=== PATIENT | female | born 1940 | race Caucasian/White ===

== ENCOUNTER 2017-01-13 20:20 | Inpatient (IN) | payer OTHER ==
[~2017-01-13] VITALS: Ht 157.5 cm; Wt 67.1 kg
[~2017-01-13 20:20] MED LIST: ASCO500T87 PO; ASPI325T39 PO; CALCTAB57 PO; CHOL1CAP13 PO; LISI5TAB3 PO; METO25TA3 PO; OXYC-409 PO; POTA1TAB PO; ZNTT/150 PO
[2017-01-13] MEDS ORDERED: ONDANSETRON INJ 2 MG/ML 2 ML VIAL IV STA ×2 (20:22→22:06)
[2017-01-13] MEDS ORDERED: GLIP5TAB3 PO (20:51)
[2017-01-13] MEDS ORDERED: POTA99TA PO (20:51)
[2017-01-13] MEDS ORDERED: LISI5TAB PO (20:51)
[2017-01-13] MEDS ORDERED: ASPI81TA28 PO (20:51)
[2017-01-13] MEDS ORDERED: NAPR-1169 PO (20:51)
[2017-01-13 20:52] LABS: ISTAT CREATININE 1.2 mg/dl (0.6-1.3); ISTAT HEMOGLOBIN 12.2 g/dl (12.0-16.0); ISTAT IONIZED CALCIUM 1.16 mmol/l (1.12-1.32)
--- NOTE | 2017-01-13 21:04 | DIAGNOSTIC IMAGING REPORT ---
HEAD CT NONCONTRAST CT DOSE: HISTORY: Syncope syncope TECHNIQUE: Multiaxial CT images of the head were performed without the use of intravenous contrast. Comparison: None. Findings: Partial opacification right maxillary sinus. The calvarium and skull base are intact. The ventricles and sulci are within normal limits. There is no mass, hematoma, midline shift, or acute infarct. Impression: Partial opacification right maxillary sinus. The brain specifically is negative. Electronically signed by: Juancarlos Sibley M.D. 01/13/2017 9:03 PM Dictated Date/Time: 01/13/2017 9:02 PM
--- NOTE | 2017-01-13 21:08 | DIAGNOSTIC IMAGING REPORT ---
MAXILLOFACIAL CT CT DOSE: HISTORY: Trauma syncope TECHNIQUE: Multiaxial CT images of the maxillofacial region were performed and reformatted in the coronal plane without the use of contrast. COMPARISON: None. FINDINGS: Nondisplaced cortical fracture base right orbit. No evidence for fat or muscular entrapment. Moderate mucosal thickening right maxillary and right ethmoid sinuses. All remaining osseous structures are unremarkable. Temporomandibular joints are symmetric with moderate degenerative change. IMPRESSION: 1. Nondisplaced cortical fracture anterior right orbital margin. 2. No evidence for fat or muscular entrapment. 3. Moderate mucosal thickening of the right maxillary and right ethmoid sinuses. 4. Study is otherwise negative. Electronically signed by: Juancarlos Sibley M.D. 01/13/2017 9:07 PM Dictated Date/Time: 01/13/2017 9:04 PM
--- NOTE | 2017-01-13 21:10 | DIAGNOSTIC IMAGING REPORT ---
CERVICAL SPINE CT CT DOSE: 1207.04 mGy.cm HISTORY: syncope TECHNIQUE: Multiaxial CT images of the cervical spine were performed and reformatted in the sagittal and coronal plane without the use of contrast. COMPARISON: None. FINDINGS: No fractures. No subluxation. Prevertebral soft tissues and the C1-C2 interval are intact. No pneumothorax. IMPRESSION: No fractures within the cervical spine. Electronically signed by: Juancarlos Sibley M.D. 01/13/2017 9:08 PM Dictated Date/Time: 01/13/2017 9:07 PM
[2017-01-13 21:17] LABS: HEMATOCRIT 34.8 % (37-47); MEAN CELL VOLUME 87.9 fL (80-100); MEAN CORPUSCULAR HEMOGLOBIN 28.8 pg (25-34); MEAN CORPUSCULAR HGB CONC 32.8 g/dl (32-36); MEAN PLATELET VOLUME 8.7 fL (7.4-10.4); PLATELET COUNT 330 K/uL (130-400); RED BLOOD COUNT 3.96 M/uL (4.2-5.4); WHITE BLOOD COUNT 22.12 K/uL (4.8-10.8)
[2017-01-13] MEDS ORDERED: SODIUM CHLORIDE 0.9% 1000ML 1,000 ML IV STA (21:21)
--- NOTE | 2017-01-13 21:22 | EMERGENCY ROOM VISIT NOTE ---
ED Visit Note First contact with patient: 20:22 The patient was seen and examined with Castillo Jackson PA-C. I agree with the history, physical and findings. Please see the note for disposition and details. The patient had a spell and had a head injury. CT of the head and C- spine were negative. Her blood work was concerning for a leukocytosis and urinalysis was concerning for infection. The patient did have an elevated lactate. She was treated with antibiotics and fluids. The patient was doing better. Consultation was made with internal medicine for further evaluation and management.
[2017-01-13 21:27] LABS: PROTHROMBIN TIME (PATIENT) 10.7 SECONDS (9.0-12.0)
[2017-01-13] MEDS ORDERED: OPTIRAY 320 IV PRN (21:30)
--- NOTE | 2017-01-13 21:34 | DIAGNOSTIC IMAGING REPORT ---
CHEST ONE VIEW PORTABLE CLINICAL HISTORY: fall/syn opal trauma. Pain. COMPARISON STUDY: 2013 FINDINGS: Chronic atelectasis right base. Lungs otherwise are clear. No evidence for cardiac enlargement. IMPRESSION: Negative chest. Electronically signed by: Juancarlos Sibley M.D. 01/13/2017 9:33 PM Dictated Date/Time: 01/13/2017 9:33 PM
[2017-01-13 21:40] LABS: ALT/SGPT 24 U/L (12-78); BLOOD UREA NITROGEN 22 mg/dl (7-18); BUN/CREATININE RATIO 15.7 (10-20); CALCIUM 8.8 mg/dl (8.5-10.1); CARBON DIOXIDE 23 mmol/L (21-32); CHLORIDE 103 mmol/L (98-107); GLUCOSE 184 mg/dl (70-99); MAGNESIUM 2.3 mg/dl (1.8-2.4); POTASSIUM 3.7 mmol/L (3.5-5.1); SODIUM 139 mmol/L (136-145)
[2017-01-13 21:43] LABS: MANUAL MICROSCOPIC REQUIRED? NO; REVIEW REQ? YES; URINE APPEARANCE CLOUDY (CLEAR); URINE BILIRUBIN NEG (NEG); URINE COLOR DK YELLOW; URINE EPITHELIAL CELL AUTO >30 /lpf (0-5); URINE NITRITE POS (NEG); URINE SPECIFIC GRAVITY 1.025 (1.000-1.030); UROBILINOGEN NEG (NEG); ZZURINE CULT IF INDIC CATH YES
[2017-01-13 21:47] LABS: LYMPH ABS # 3.27 K/uL (1.2-3.4); LYMPHOCYTE % 14.8 %; MYELOCYTE % 0.9 %; NEUTROPHILS % 63.4 %; VARIANT LYM ABS # 3.47 K/uL; VARIANT LYMPHOCYTE % 15.7 %
[2017-01-13] MEDS ORDERED: CEFTRIAXONE SOD INJ 1 GM ADDVIAL IV STA (21:49)
[2017-01-13 21:51] LABS: ALB/GLOB RATIO 0.7 (0.9-2); ALKALINE PHOSPHATASE 96 U/L (45-117); AST/SGOT 37 U/L (15-37)
[2017-01-13 22:01] LABS: URINE MUCUS PRESENT (NONE PRSENT)
--- NOTE | 2017-01-13 22:11 | DIAGNOSTIC IMAGING REPORT ---
CHEST CT WITH CONTRAST CT DOSE: HISTORY: Trauma RLL pain/guarding s/p fall TECHNIQUE: Multiaxial CT images of the chest were performed following the intravenous administration of contrast. COMPARISON: None. FINDINGS: The lungs are clear. The mediastinal vascular structures are within normal limits. No mediastinal or hilar lymphadenopathy. No pleural effusion or pneumothorax. Limited views of the upper abdomen demonstrate a normal liver and spleen. IMPRESSION: No significant abnormality identified within the chest. Mild bibasilar interstitial change Electronically signed by: Juancarlos Sibley M.D. 01/13/2017 10:09 PM Dictated Date/Time: 01/13/2017 10:08 PM
--- NOTE | 2017-01-13 22:14 | DIAGNOSTIC IMAGING REPORT ---
ABDOMEN AND PELVIS CT WITH IV CONTRAST CT DOSE: 1249.81 mGy.cm HISTORY: Trauma. Pain. RUQ abd pain/guarding s/p fall TECHNIQUE: Multiaxial CT images of the abdomen and pelvis were performed following the use of intravenous contrast. COMPARISON STUDY: None. FINDINGS: Mild bibasilar interstitial change. Liver is uniform. Prior cholecystectomy. Pancreas is unremarkable. Kidneys show no evidence for hydronephrosis. Bowel pattern is nonobstructive throughout. Degenerative change of the lumbar spine and bony pelvis. Chronic sigmoid diverticulosis. Tortuous and redundant sigmoid on anatomic basis. Normal appendix. IMPRESSION: 1. No acute process of the abdomen or pelvis. 2. Chronic sigmoid diverticulosis with moderate wall thickening and sigmoid redundancy on anatomic basis. 3. Degenerative change with no acute bony abnormality. Electronically signed by: Juancarlos Sibley M.D. 01/13/2017 10:12 PM Dictated Date/Time: 01/13/2017 10:09 PM
[2017-01-13 22:17] LABS: BENZODIAZEPINE, URINE NEG (NEG); COCAINE,URINE NEG (NEG); PHENCYCLIDINE, URINE NEG (NEG)
[2017-01-13] MEDS ORDERED: XYLOCAINE 1%/SOD BICARB 20 ML VIAL INFIL ONE (22:45)
[2017-01-13] MEDS ORDERED: METRONIDAZOLE / NSS 500 MG in PREMIXED NSS 100 ML IV ONE (22:45)
[2017-01-13] MEDS ORDERED: NITROGLYCERIN 0.4 MG SL PER TAB CHARGE SL STA (22:46)
[2017-01-13] MEDS ORDERED: NITROGLYCERIN 0.4 MG SL PER TAB CHARGE ONE (23:01)
[2017-01-13] MEDS ORDERED: METRONIDAZOLE 500MG / 100ML NSS ONE (23:35)
[2017-01-14] VITALS (9 sets, daily range): BP systolic 106–144; BP diastolic 45–68; PULSE 62–76; TEMP 36.4–37; O2SAT 95–98; BMI 27.0
[2017-01-14] MEDS ORDERED: INSULIN GLARGINE SOLOSTAR 100 UNITS/ML 3 ML PEN SC ONE (00:05)
[2017-01-14] MEDS ORDERED: DEXTROSE 50% 50 ML SYR IV PRN (00:15)
[2017-01-14] MEDS ORDERED: GLUCAGON FOR INJ 1 MG VIAL SQ PRN (00:15)
[2017-01-14] MEDS ORDERED: GLUCOSE 40% GEL 15 GM TUBE PO PRN (00:15)
[2017-01-14] MEDS ORDERED: GLUCOSE 10 TABS/TUBE PO PRN (00:15)
[2017-01-14] MEDS ORDERED: NITROGLYCERIN 0.4 MG SL PER TAB CHARGE SL PRN (00:15)
--- NOTE | 2017-01-14 00:43 | EMERGENCY ROOM VISIT NOTE ---
History First contact with patient: 20:22 Chief Complaint: FALL Stated Complaint: FALL History of Present Illness The patient is a 76 year old female who presents to the Emergency Department for evaluation after a fall and loss of consciousness. It was reported by nursing staff that triage nurse's heard the patient fall to the ground in the waiting room. They rushed outside and found the patient on the floor. She had vomited. She was unconscious. She was brought immediately back to room B4B for evaluation. Patient can state her name and date of . She appears obtunded. History of present illness is limited secondary the patient's current mental state. Review of Systems A complete 10-point Review of Systems was discussed with the patient, with pertinent positives and negatives listed in the History of Present Illness. All remaining Review of Systems questions can be considered negative unless otherwise specified. Past Medical/Surgical History Medical Problems: (1) Sepsis Social History Smoking Status: Former Smoker Smokeless Tobacco Use: No Drug Use: none Marital Status: Housing Status: lives with family Occupation Status: retired Current/Historical Medications Scheduled Ascorbic Acid (Vitamin C Tr/Stephanie Hips), 1,000 MG PO QPM Aspirin (Aspirin Ec), 81 MG PO DAILY Calcium Carbonate-Vitamin D W/ (Calcium 600 + Minerals), 1 TAB PO BID Cholecalciferol (D3), 1 TAB PO HS Glipizide (Glucotrol), 5 MG PO BID Lisinopril (Prinivil), 5 MG PO DAILY Metoprolol Succ (Toprol Xl) (Toprol-Xl), 25 MG PO DAILY Potassium (Potassium), 2 TABS PO QPM Ranitidine (Zantac), 150 MG PO BID Scheduled PRN Naproxen (Naprosyn), 500 MG PO BID PRN for Pain Allergies Coded Allergies: No Known Allergies (Unverified , 10/03/14) Physical Exam Vital Signs Date Time Temp Pulse Resp B/P Pulse Ox O2 Delivery O2 Flow Rate FiO2 01/14/17 00:14 75 01/13/17 23:22 129/68 01/13/17 22:58 106/72 01/13/17 22:50 79 19 95 Nasal Cannula 2.0 01/13/17 22:28 116/61 01/13/17 22:20 82 22 97 Nasal Cannula 2.0 01/13/17 21:58 123/66 01/13/17 21:53 83 20 128/69 98 Nasal Cannula 2.0 01/13/17 21:51 128/69 01/13/17 21:50 83 12 98 Nasal Cannula 2.0 01/13/17 21:20 76 26 100 Nasal Cannula 2.0 01/13/17 21:05 36.4 78 24 118/64 94 Nasal Cannula 2.0 01/13/17 21:00 118/64 01/13/17 20:34 112/63 01/13/17 20:30 83 01/13/17 20:30 91 Room Air 01/13/17 20:24 88 20 147/71 93 Room Air Pain Rating (0-10): 0 Physical Exam VITAL SIGNS - Vital signs and nursing notes were reviewed. GENERAL - 76-year-old female appearing her stated age. Patient is laying face down on the litter with vomit sided. There is blood noted to the sheet. Distant gaze. SKIN - 2.0 cm laceration noted to the RIGHT forehead. Edges gape apart with traction. No active bleeding noted. HEAD - Normocephalic. No Phan's Sign or Raccoon's Eyes. No depressed skull fractures palpable. EYES - PERRL with EOMI bilaterally. Sclera anicteric. Palpebral conjunctiva pink and moist with no injection noted. EARS - No deformities of external structures noted on gross examination bilaterally. No pain elicited with palpation of the tragus bilaterally. External auditory canals without discharge or otorrhea. Tympanic membranes pearly enamorado without retraction or bulging. NOSE - Midline and without cyanosis. No epistaxis or purulent drainage noted. Septum midline without deviation or septal hematoma noted. MOUTH/OROPHARYNX - Without perioral cyanosis. Buccal mucosa pink and moist and without leukoplakia. Tongue midline with equal elevation of palate bilaterally. No tonsillar hypertrophy, erythema, or exudates noted. NECK - Neck with FROM. Supple to palpation. No point tenderness. LUNGS - Chest wall symmetric without accessory muscle use, intercostals retractions, or central cyanosis. Normal vesicular breath sounds CTA B/L. No wheezes, rales, or rhonchi appreciated. CARDIAC - RRR with S1/S2. No murmur, rubs, or gallops appreciated. ABDOMEN - Abdominal contour obese and without pulsations or visible masses. BS normoactive all four quadrants. No tenderness, palpable masses, hepatosplenomegaly, or ascites noted. EXTREMITIES - No pretibial edema present. +3/5 radial and dorsalis pedis pulses palpated throughout. +5/5 strength appreciated equally in the upper and lower extremities bilaterally. NEUROLOGIC - Cranial nerves II through XII grossly intact. Sensory intact to light touch throughout. PSYCH - distant gaze. Patient able to answer name and date of . She is uncertain as to why she is at the hospital, but was able to say that she was at the "[facility]". Medical Decision & Procedures ER Provider Diagnostic Interpretation: Radiological imaging and reports were reviewed by myself. Radiologist's Interpretation as follows: ABDOMEN AND PELVIS CT WITH IV CONTRAST CT DOSE: 1249.81 mGy.cm HISTORY: Trauma. Pain. RUQ abd pain/guarding s/p fall TECHNIQUE: Multiaxial CT images of the abdomen and pelvis were performed following the use of intravenous contrast. COMPARISON STUDY: None. FINDINGS: Mild bibasilar interstitial change. Liver is uniform. Prior cholecystectomy. Pancreas is unremarkable. Kidneys show no evidence for hydronephrosis. Bowel pattern is nonobstructive throughout. Degenerative change of the lumbar spine and bony pelvis. Chronic sigmoid diverticulosis. Tortuous and redundant sigmoid on anatomic basis. Normal appendix. IMPRESSION: 1. No acute process of the abdomen or pelvis. 2. Chronic sigmoid diverticulosis with moderate wall thickening and sigmoid redundancy on anatomic basis. 3. Degenerative change with no acute bony abnormality. CHEST CT WITH CONTRAST CT DOSE: HISTORY: Trauma RLL pain/guarding s/p fall TECHNIQUE: Multiaxial CT images of the chest were performed following the intravenous administration of contrast. COMPARISON: None. FINDINGS: The lungs are clear. The mediastinal vascular structures are within normal limits. No mediastinal or hilar lymphadenopathy. No pleural effusion or pneumothorax. Limited views of the upper abdomen demonstrate a normal liver and spleen. IMPRESSION: No significant abnormality identified within the chest. Mild bibasilar interstitial change CERVICAL SPINE CT CT DOSE: 1207.04 mGy.cm HISTORY: syncope TECHNIQUE: Multiaxial CT images of the cervical spine were performed and reformatted in the sagittal and coronal plane without the use of contrast. COMPARISON: None. FINDINGS: No fractures. No subluxation. Prevertebral soft tissues and the C1-C2 interval are intact. No pneumothorax. IMPRESSION: No fractures within the cervical spine. CHEST ONE VIEW PORTABLE CLINICAL HISTORY: fall/syn opal trauma. Pain. COMPARISON STUDY: 2013 FINDINGS: Chronic atelectasis right base. Lungs otherwise are clear. No evidence for cardiac enlargement. IMPRESSION: Negative chest. HEAD CT NONCONTRAST CT DOSE: HISTORY: Syncope syncope TECHNIQUE: Multiaxial CT images of the head were performed without the use of intravenous contrast. Comparison: None. Findings: Partial opacification right maxillary sinus. The calvarium and skull base are intact. The ventricles and sulci are within normal limits. There is no mass, hematoma, midline shift, or acute infarct. Impression: Partial opacification right maxillary sinus. The brain specifically is negative. MAXILLOFACIAL CT CT DOSE: HISTORY: Trauma syncope TECHNIQUE: Multiaxial CT images of the maxillofacial region were performed and reformatted in the coronal plane without the use of contrast. COMPARISON: None. FINDINGS: Nondisplaced cortical fracture base right orbit. No evidence for fat or muscular entrapment. Moderate mucosal thickening right maxillary and right ethmoid sinuses. All remaining osseous structures are unremarkable. Temporomandibular joints are symmetric with moderate degenerative change. IMPRESSION: 1. Nondisplaced cortical fracture anterior right orbital margin. 2. No evidence for fat or muscular entrapment. 3. Moderate mucosal thickening of the right maxillary and right ethmoid sinuses. 4. Study is otherwise negative. Laboratory Results 01/13/17 21:03 Red Blood Count 3.96, Mean Corpuscular Volume 87.9, Mean Corpuscular Hemoglobin 28.8, Mean Corpuscular Hemoglobin Concent 32.8, Mean Platelet Volume 8.7 01/13/17 21:03 Test 01/13/17 20:32 01/13/17 20:36 01/13/17 20:41 01/13/17 21:03 Bedside Lactic Acid Venous 2.79 mmol/L (0.90-1.70) Bedside Hemoglobin 12.2 g/dl (12.0-16.0) Bedside Hematocrit 36 % (37-47) Bedside Sodium 139 mEq/L (135-144) Bedside Potassium 3.7 mEq/L (3.3-5.0) Bedside Chloride 101 mEq/L (101-112) Bedside Total CO2 23 mEq/l (24-31) Bedside Blood Urea Nitrogen 23 mg/dl (7-18) Bedside Creatinine 1.2 mg/dl (0.6-1.3) Bedside Glucose (other) 206 mg/dl (70-99) Bedside Ionized Calcium (Maria Guadalupe) 1.16 mmol/l (1.12-1.32) Bedside Troponin I 0.000 ng/ml (0-0.045) White Blood Count 22.12 K/uL (4.8-10.8) Red Blood Count 3.96 M/uL (4.2-5.4) Hemoglobin 11.4 g/dL (12.0-16.0) Hematocrit 34.8 % (37-47) Mean Corpuscular Volume 87.9 fL (80-100) Mean Corpuscular Hemoglobin 28.8 pg (25-34) Mean Corpuscular Hemoglobin Concent 32.8 g/dl (32-36) Platelet Count 330 K/uL (130-400) Mean Platelet Volume 8.7 fL (7.4-10.4) RDW Standard Deviation 49.9 fL (36.4-46.3) RDW Coefficient of Variation 15.3 % (11.5-14.5) Neutrophils % (Manual) 63.4 % Lymphocytes % (Manual) 14.8 % Variant Lymphocytes % (manual) 15.7 % Monocytes % (Manual) 5.2 % Myelocytes % 0.9 % Neutrophils # (Manual) 14.02 K/uL (1.4-6.5) Total Absolute Neutrophils 14.02 K/uL (1.4-6.5) Lymphocytes # (Manual) 3.27 K/uL (1.2-3.4) Absolute Variant Lymphocytes 3.47 K/uL Total Absolute Lymphocytes 6.75 K/uL (1.2-3.4) Monocytes # (Manual) 1.15 K/uL (0.11-0.59) Myelocytes # 0.20 K/uL (0-0) Red Blood Cell Morphology Unremarkable Prothrombin Time 10.7 SECONDS (9.0-12.0) Prothromb Time International Ratio 1.0 (0.9-1.1) Activated Partial Thromboplast Time 26.1 SECONDS (21.0-31.0) Partial Thromboplastin Ratio 1.0 Anion Gap 13.0 mmol/L (3-11) Estimated GFR () 42.8 Estimated GFR (Non- 36.9 BUN/Creatinine Ratio 15.7 (10-20) Calcium Level 8.8 mg/dl (8.5-10.1) Magnesium Level 2.3 mg/dl (1.8-2.4) Total Bilirubin 0.5 mg/dl (0.2-1) Aspartate Amino Transf (AST/SGOT) 37 U/L (15-37) Alanine Aminotransferase (ALT/SGPT) 24 U/L (12-78) Alkaline Phosphatase 96 U/L (45-117) Total Creatine Kinase 52 U/L (26-192) Creatine Kinase MB < 0.5 ng/ml (0.5-3.6) Creatine Kinase MB Ratio (0-3.0) Total Protein 7.9 gm/dl (6.4-8.2) Albumin 3.2 gm/dl (3.4-5.0) Globulin 4.7 gm/dl (2.5-4.0) Albumin/Globulin Ratio 0.7 (0.9-2) Lipase 197 U/L (73-393) Thyroid Stimulating Hormone (TSH) 5.410 uIu/ml (0.300-4.500) Ethyl Alcohol mg/dL < 3.0 mg/dl (0-3) Test 01/13/17 21:25 01/13/17 23:27 01/14/17 00:05 Urine Color DK YELLOW Urine Appearance CLOUDY (CLEAR) Urine pH 5.0 (4.5-7.5) Urine Specific [place] 1.025 (1.000-1.030) Urine Protein 2+ (NEG) Urine Glucose (UA) NEG (NEG) Urine Ketones NEG (NEG) Urine Occult Blood TRACE (NEG) Urine Nitrite POS (NEG) Urine Bilirubin NEG (NEG) Urine Urobilinogen NEG (NEG) Urine Leukocyte Esterase TRACE (NEG) Urine WBC (Auto) 5-10 /hpf (0-5) Urine RBC (Auto) 0-4 /hpf (0-4) Urine Hyaline Casts (Auto) 10-30 /lpf (0-5) Urine Epithelial Cells (Auto) >30 /lpf (0-5) Urine Bacteria (Auto) 3+ (NEG) Urine Renal Epithelial Cells /lpf (0-5) Urine Mucus PRESENT (NONE PRSENT) Urine Opiates Screen NEG (NEG) Urine Methadone, Qualitative NEG (NEG) Urine Barbiturates NEG (NEG) Urine Phencyclidine (PCP) Level NEG (NEG) Ur Amphetamine/Methamphetamine NEG (NEG) MDMA (Ecstasy) Screen NEG (NEG) Urine Benzodiazepines Screen NEG (NEG) Urine Cocaine Metabolite NEG (NEG) Urine Marijuana (THC) NEG (NEG) Lactic Acid Level 1.6 mmol/L (0.4-2.0) Medications Administered Medications (Trade) Dose Ordered Sig/Taylor Route Start Time Stop Time Status Last Admin Dose Admin Ondansetron HCl 4 mg 4 mg NOW STAT IV 01/13/17 20:22 01/13/17 20:25 DC 01/13/17 20:22 4 MG Sodium Chloride (Nss 1000ml) 1,000 ml @ 999 mls/hr Q1H1M STAT IV 01/13/17 21:21 01/13/17 22:21 DC 01/13/17 21:27 999 MLS/HR Ceftriaxone Sodium (Rocephin Inj) 1 gm NOW STAT IV 01/13/17 21:49 01/13/17 21:51 DC 01/13/17 22:12 1 GM Ondansetron HCl (Zofran Inj) 4 mg NOW STAT IV 01/13/17 22:06 01/13/17 22:07 DC 01/13/17 22:12 4 MG Nitroglycerin (Nitrostat Tab) 0.4 mg STK-MED ONCE .ROUTE 01/13/17 23:01 01/13/17 23:03 DC 01/13/17 23:24 0.4 MG Metronidazole (Flagyl / Nss) 500 mg STK-MED ONCE .ROUTE 01/13/17 23:35 01/13/17 23:37 DC 01/13/17 23:45 500 MG Procedure Patient was placed on the district fire chief and monitored throughout the entire extent of their stay. In addition, the patient's pulse oximetry was monitored throughout the entire stay. Any abnormalities or aberrancies were addressed appropriately. Facial Laceration: Costs and benefits of performing primary wound closure versus no repair were discussed with the patient who verbalizes understanding. Verbal consent was obtained prior to performing the procedure. 1.0 cc of 1% buffered lidocaine was used to anesthetize the RIGHT forehead laceration. The wound was cleansed and prepped in the typical sterile fashion utilizing normal saline and Betadine. The wound was sterilely draped. Once proper anesthetization was established, the wound was further examined and demonstrated a full-thickness laceration. No deep structures appreciated. The wound was copiously irrigated with normal saline and Betadine. The wound was closed using one simple interrupted 6-0 subcuticular Vicryl suture and 5 simple, 6-0 nylon sutures with the wound edges being well approximated. Patient tolerated the procedure well. No complications were met. ECG Indication: syncope Rate (beats per minute): 78 Rhythm: normal sinus Findings: no acute ischemic change, no ectopy Change: no significant change (from 05/30/2014.) ED Course I was approached by staff and asked to see the patient on an emergent basis. She apparently been found unconscious in the floor. She was apparently found in a high level of her own vomit. There were no family members or friends present. Patient was initially laying in the prone position on the litter. She was initially minimally responsive to verbal stimuli. Labs were drawn, saline lock in place. EKG was ordered. Patient was treated with 4 mg Zofran for vomiting with change in position. CT the head, cervical spine, and facial bones were obtained. A cervical collar had been applied prior to this. Upon return from CT, the patient did vomit a second time. She was more aware. Her family was now present at bedside. Apparently, the patient was visiting her elderly [id number] who was currently being seen in the emergency department as well. She still appears somewhat postictal at this time CT the head, cervical spine, and facial bones are unremarkable. X-rays unremarkable. The patient is not complaining of pain to the RIGHT-sided anterior lower chest and abdomen. Laboratory results demonstrate a market leukocytosis of greater than 22,000. She has no significant electrolyte abnormalities. Lactic acid was elevated at 2.79. Troponin was negative. Toxicologic screen and EtOH were unremarkable. The patient's urinalysis demonstrated UTI. This was a catheter specimen. The patient was immediately treated with IV Rocephin as well as a liter bolus. Given the patient's ongoing symptoms of pain, I did elect to perform a CT of the chest and abdomen for further evaluation. Imaging results were otherwise unremarkable. The patient is now back at baseline at this point. She is complaining of a mild headache. Otherwise, the patient is aware and alert and oriented. Case was discussed with the [facility] hospitalist who agrees to admit the patient for further evaluation and management. Patient admitted in stable condition. Medical Decision Given the patient's presentation, I did elect to perform the above-mentioned workup. The patient presents today after having a syncopal episode versus seizure. On my initial evaluation, the patient was face down on the litter. There was vomit on the bed as well. On my initial presentation, the patient seems somewhat postictal. She had a distant gaze, and did open her eyes to verbal commands. She was uncertain as to where she was at. Surprisingly, she had no focal neurological deficits. She was able to follow commands. The patient had positional nausea and vomiting which did persist. Her symptoms did improve throughout the stay in the emergency department and she simply complaining of a headache and some positional dizziness and nausea as well. CT the head and neck were unremarkable. She was found to have an orbital fracture which is otherwise unremarkable. As the patient became more lucid, she was able to describe pain to the anterior ribs and abdomen. Given her fall and trauma, a CT was obtained. Family was present this time and does report the patient has had diarrhea for extended period of time recently. Patient was found to have a UTI on cath urine. Of concern, the patient does have a market leukocytosis and an elevated lactic acid. She had a syncope with collapse and secondary head injury versus seizure. Certainly, the patient did have loss of consciousness, there is no seizure-like activity reported. She did defecate herself. Regardless, she was found to have a urinary tract infection in addition to an elevated leukocytosis and elevated lactic acid. She will certainly be treated with antibiotics and a septic bundle, however close monitoring for possible return seizure-like activity should certainly be evaluated as well. Patient was educated on today's findings. She will be admitted to the [facility] service for further evaluation and management. Patient admitted in stable condition. In the evaluation and treatment of this patient, the following differential diagnoses were considered: Migraine Headache, Intracranial Hemorrhage, Subdural Hematoma, Subarachnoid Hemorrhage, Cerebral Aneurysm, Temporal/Giant Cell Arteritis, Tension Headache, Meningitis, Encephalitis, or Hydrocephalus. Impression Primary Impression: Loss of consciousness Additional Impressions: Head injury Laceration of face SIRS (systemic inflammatory response syndrome) UTI (urinary tract infection) Departure Information Dispostion Admitted as an inpatient Condition FAIR Referrals Andre Hackett D.O. (PCP) Patient Instructions My [facility] Problem Qualifiers Additional Impressions: Head injury Encounter type: initial encounter Qualified Codes: S09.90XA - Unspecified injury of head, initial encounter Laceration of face Encounter type: initial encounter Qualified Codes: S01.81XA - Laceration without foreign body of other part of head, initial encounter UTI (urinary tract infection) Urinary tract infection type: site unspecified Hematuria presence: with hematuria Qualified Codes: N39.0 - Urinary tract infection, site not specified ; R31.9 - Hematuria, unspecified
[2017-01-14] MEDS ORDERED: NSS + 20MEQ KCL 1000ML 1,000 ML IV ONE (00:45)
[2017-01-14] MEDS ORDERED: CEFEPIME IV 2,000 MG in DEXTROSE 5% 100ML 100 ML IV ONE (01:30)
[2017-01-14] MEDS ORDERED: CEFEPIME CONSULT ACTIVE PRN ×2 (01:30)
[2017-01-14] MEDS ORDERED: PATIENT'S HEIGHT AND/OR WEIGHT NEEDED SCH (01:45)
[2017-01-14] MEDS: ACETAMINOPHEN 325 MG TAB PO PRN ×2 (02:37→16:39)
--- NOTE | 2017-01-14 04:05 | HISTORY & PHYSICAL EXAMINATION ---
DATE OF ADMISSION: 01/13/2017 PRIMARY CARE DOCTOR: Dr. Hackett History is obtained from patient's family and records. CHIEF COMPLAINT: Syncope. HISTORY OF PRESENT ILLNESS: Medical history is significant for breast cancer (atypical ductal hyperplasia) , R sp surgery ([facility], 2009) sp Tamoxifen tx. hypertension, DM2 on oral meds, past tobacco abuse, history of diverticulosis, hemorrhoids and polyps as per records, chronic anemia (baseline hemoglobin of 10). Recent confinement in 2013 for elective right knee surgery. Mamadoumicheal, Ppatient was walking in the hallway at the Emergency Room waiting room (px came w/ family to accompany a sick family member) when she felt lightheaded. Patient was found by staff to be unresponsive and face down on the floor. Px noted to diaphoretic. Px had subsequent emesis. bleeding wound noted on the R presybeterian. Px denies blurred vision. No incontinence, tongue biting noted. Phe noted achy epigastric/lower chest discomfort, somewhat pleuritic ff fall, some relief with nitroglycerin at the ER. Denies shortness of breath. Admits to chronic diarrhea symptoms the last 6 months. Initially attributed by PCP to metformin/ Diarrhea sx still persistent despite Glipizide switch. Some degree of weight loss as per family from chronic diarrhea. PX also admits to bladder discomfort sx. No fever, no chills. Px w/dry cough symptoms, sore throat. At the Emergency Room, the patient received ceftriaxone for possible sepsis. MEDICAL HISTORY: As above. She had a colonoscopy in February 2014 for chronic diarrhea symptoms which showed non thrombosed external and internal hemorrhoids, moderate diverticulosis and polyps. The patient was told to increase fiber, Citrucel, FiberCon and Metamucil. Diarrhea resolved subsequently. SURGERIES: Breast surgery, ortho procedure, cholecystectomy. HOME MEDICATIONS: Include; glipizide, aspirin, calcium, lisinopril, vitamin C, Toprol XL, naproxen, potassium and Zantac. ALLERGIES: No known drug allergies. FAMILY HISTORY: Heart disease, diabetes and breast cancer. 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 REVIEW OF SYSTEMS: As per HPI, all other ROS negative. PHYSICAL EXAMINATION: VITAL SIGNS: Blood pressure was noted to be 130/69 pulse rate 90 RR 18 T 36.4, sats 91 on room air and later 98 on 2 liters. GENERAL: Noted to be obese, slightly uncomfortable, in no respiratory distress. SKIN: pallor. HEENT: Pale palpebral conjunctivae. Dry mucosa. dressing R lat orbit NECK: Short neck. LUNGS: Decreased breath sounds. ABDOMEN: Epigastric tenderness EXTREMITIES: No edema, no tenderness. NEUROLOGIC: No gross focality. LABORATORIES: Hemoglobin was noted to be 11.4, hematocrit 34.8, white cell count 6.2, platelets 230. Sodium was noted to be 136, K 4 chloride 103, CO2 23, BUN 22, creatinine 1.4 and glucose 184. Troponin was noted to be zero. Hemoglobin A1c in June [address] head showed opacified right maxillary sinus. CT chest; mild bibasilar interstitial change. CT of the abdomen and pelvis; prior cholecystectomy, chronic sigmoid diverticulosis with mild wall thickening, sigmoid redundancy anatomic basis. Maxillofacial CT; nondisplaced cortical fracture, right without entrapment. UA; nitrite positive urine. EKG rate 76, NSR , no ischemia ASSESSMENT: 1. Sepsis possible sources : urinary tract infection chronic diarrhea, rule out Cdif 2. Unwitnessed syncopal event likely from orthostasis from ARF, possible clinical dehydration 2 to illness with description of lightheadedness symptoms while ambulating rule out cardiac pathology, unwitnessed seizures as differentials 3. Hypertension, stable. 4. DM2 on oral meds, reasonable control as of recent HgA1c 5. past tobacco abuse 6. R breast cancer status post surgery, tamoxifen therapy. 7. Chronic anemia, hemoglobin baseline 8. chest pain possibly muscular trauma following fall (patient was found facedown). 9. past tobacco abuse 10. undisplaced lateral orbital fx, R 2 to fall PLAN: PCU. Cultures. Cefepime for UTI. stool cdif, Flagyl for presumptive C. dif in light of sepsis criteria. DC Flagyl if C. dif negative. Consider GI consult for chronic diarrhea sx if C. dif workup negative. Monitor creatinine response to IV fluids. Hold home ACEI inhibitor until creatinine is at baseline. Check orthostatic vitals. 2D echo, EEG for unwitnessed syncope workup. ISS BG goal 140-180. May need basal insulin. Patient due for hemoglobin check. prob non-operative mx for non-displaced lat orb wall fx L DVT prophylaxis Heparin subQ. Full code. MTDD
[2017-01-14] MEDS: TRAMADOL HCL 50 MG TAB PO PRN (06:03)
[2017-01-14] MEDS: HEPARIN SOD 5000 UNIT/0.5 ML CARP SQ SCH ×3 (06:06→20:58)
[2017-01-14] MEDS: ONDANSETRON INJ 2 MG/ML 2 ML VIAL IV PRN (06:18)
[2017-01-14 06:19] LABS: ESTIMATED AVERAGE GLUCOSE 117 mg/dl; HA1C FLAG Normal (Normal)
[2017-01-14 06:43] LABS: HEMATOCRIT 33.8 % (37-47); MEAN CORPUSCULAR HEMOGLOBIN 29.2 pg (25-34); MEAN CORPUSCULAR HGB CONC 33.1 g/dl (32-36); MEAN PLATELET VOLUME 8.8 fL (7.4-10.4); PLATELET COUNT 298 K/uL (130-400); RED BLOOD COUNT 3.84 M/uL (4.2-5.4); WHITE BLOOD COUNT 16.85 K/uL (4.8-10.8)
[2017-01-14 07:05] LABS: BASO % 0.1 %; BASO ABS # 0.01 K/uL (0-0.2); COMPLETE YES; IG% 0.4 %; LYMPH % 10.1 %; MONO % 7.4 %; TOXIC GRANULATION 1+
[2017-01-14 07:08] LABS: BLOOD UREA NITROGEN 18 mg/dl (7-18); BUN/CREATININE RATIO 15.2 (10-20); CALCIUM 8.7 mg/dl (8.5-10.1); CARBON DIOXIDE 24 mmol/L (21-32); CHLORIDE 105 mmol/L (98-107); GLUCOSE 177 mg/dl (70-99); POTASSIUM 4.4 mmol/L (3.5-5.1); SODIUM 140 mmol/L (136-145)
[2017-01-14] MEDS: ASPIRIN 81 MG ECTAB PO SCH (07:51)
[2017-01-14] MEDS: METRONIDAZOLE / NSS 500 MG in PREMIXED NSS 100 ML IV SCH ×3 (07:51→23:44)
[2017-01-14] MEDS: METOPROLOL SUCC 25MG EXT REL TAB PO SCH (07:52)
[2017-01-14] MEDS: RANITIDINE HCL 150 MG TAB PO SCH ×2 (07:52→20:54)
[2017-01-14] MEDS: INSULIN ASPART 100 UNITS/ML 3 ML PEN SC SCH ×4 (09:26→20:53)
[2017-01-14 14:23] LABS: COMPLETE YES
--- NOTE | 2017-01-14 16:13 | Progress Note ---
Internal Med Progress Note Date of Service: Jan 14, 2017. Provider Documentation: SUBJECTIVE: Seen and examined at bedside. States having right sided pleuritic pain. Denies any SOB, palpitations, dizziness, blurred vision. Also reports chronic diarrhea. OBJECTIVE: Vital Signs-as noted below Physical Exam: General Appearance:Moderately built and nourished, no apparent distress Head: normocephalic, Atraumatic Eyes: normal inspection, EOMI, PERRLA +Sutures on right side of orbit Neck: supple, no Trachea midline Respiratory/Chest: Normal breath sounds, + creps b/l, + tenderness of right subcostal region Cardiovascular: S1, S2, No murmur Abdomen/GI:Soft, mildly distended, Bowel sounds present Extremities/Musculoskelatal:normal inspection, no edema Neurologic/Psych:AAOX3, grossly no focal neurological deficits Skin: normal color, warm, + post surgical scars on B/L knees Lab data as noted below. ASSESSMENT & PLAN: SEPSIS: Likely secondary to UTI Also has history of chronic diarrhea since 6 months: r/o c.diff Follow up cultures, stool studies Continue IV antibiotics Lactate:wnl Leukocytosis trending down CXR/CT chest:No acute process CT abdomen:Chronic sigmoid diverticulosis with moderate wall thickening S/P IV fluids Will DC flagyl if c.diff negative UNWITNESSED SYNCOPE: Likely from orthostasis secondary to dehydration/illness Patient reports feeling lightheaded prior to syncopal episode S/P IV fluids EEG:Normal, without evidence for focal or generalized encephalopathy and without evidence for potentially epileptogenic activity. ECHO: pending CT head:wnl Check orthostatics Monitor in Tele: r/o arrhythmias Nondisplaced cortical fracture anterior right orbital margin Head injury with +LOC Secondary to fall from syncope S/P sutures CT head: Partial opacification right maxillary sinus. Brain specifically is negative Non operative management CHRONIC DIARRHEA: Unclear etiology Will consider GI consult for chronic diarrhea if C. dif workup negative. CT abd: sigmoid diverticulosis with moderate wall thickening PLEURITIC RIGHT SIDED CHEST PAIN: Likely musculoskeletal secondary to fall Pain control PT/OT Troponin: Negative KIMBERLEE: Likely prerenal Resolved S/P IV Fluids Monitor Hold home ACEI inhibitor for now DM II ISS, Accu checks HTN: Stable monitor H/O R breast cancer S/P surgery, tamoxifen therapy DVT PX: Heparin subQ. CODE STATUS: Full code. Vital Signs: Date Time Temp Pulse Resp B/P Pulse Ox O2 Delivery O2 Flow Rate FiO2 01/15/17 04:00 Room Air 01/15/17 04:00 36.6 54 18 124/56 95 Room Air 01/15/17 00:01 Room Air 01/15/17 00:01 36.8 62 16 111/52 95 Room Air 01/14/17 20:00 95 Room Air 01/14/17 19:19 36.8 62 18 112/53 96 Room Air 01/14/17 16:00 95 Room Air 01/14/17 15:46 36.6 63 18 116/53 95 Room Air 01/14/17 14:09 36.7 67 18 106/45 95 Room Air 01/14/17 12:03 98 Nasal Cannula 2.0 01/14/17 12:00 36.4 70 16 144/68 95 Nasal Cannula 2.0 01/14/17 09:29 98 Nasal Cannula 2.0 01/14/17 09:00 37.0 76 16 118/62 98 Room Air Lab Results: Results Past 24 Hours Test 01/14/17 07:50 01/14/17 11:23 01/14/17 16:07 01/14/17 20:21 Range/Units Bedside Glucose 166 155 105 152 70-90 mg/dl Test 01/15/17 06:06 Range/Units White Blood Count 10.11 4.8-10.8 K/uL Red Blood Count 3.91 4.2-5.4 M/uL Hemoglobin 11.4 12.0-16.0 g/dL Hematocrit 35.0 37-47 % Mean Corpuscular Volume 89.5 80-100 fL Mean Corpuscular Hemoglobin 29.2 25-34 pg Mean Corpuscular Hemoglobin Concent 32.6 32-36 g/dl Platelet Count 281 130-400 K/uL Mean Platelet Volume 9.0 7.4-10.4 fL Neutrophils (%) (Auto) 72.6 % Lymphocytes (%) (Auto) 16.3 % Monocytes (%) (Auto) 9.5 % Eosinophils (%) (Auto) 1.0 % Basophils (%) (Auto) 0.3 % Neutrophils # (Auto) 7.34 1.4-6.5 K/uL Lymphocytes # (Auto) 1.65 1.2-3.4 K/uL Monocytes # (Auto) 0.96 0.11-0.59 K/uL Eosinophils # (Auto) 0.10 0-0.5 K/uL Basophils # (Auto) 0.03 0-0.2 K/uL RDW Standard Deviation 50.3 36.4-46.3 fL RDW Coefficient of Variation 15.4 11.5-14.5 % Immature Granulocyte % (Auto) 0.3 % Immature Granulocyte # (Auto) 0.03 0.00-0.02 K/uL Microbiology Results 01/14/17 WBC Smear, Received Pending 01/14/17 Shiga Toxin Test, Received Pending 01/14/17 Stool Culture, Received Pending 01/14/17 C.difficile Toxin B Gene (PCR) - Final, Complete No C. difficile toxin B gene detected
--- NOTE | 2017-01-14 16:15 | ELECTROENCEPHALOGRAPH REPORT ---
PATIENT OF: Alex Guerrero MD CLINICAL DIAGNOSIS: Syncope, question seizures. EEG DIAGNOSIS: Essentially normal during wakefulness. DESCRIPTION OF TRACING: This EEG was done as a bedside recording. This was of good technical quality with few or no muscle movement artifacts. Simultaneous video analysis of patient movement and behavior was obtained. No activation procedures were utilized. Drowsiness and light sleep were not obtained. During wakefulness, there is evidence for normal background rhythm in the alpha range of up to 9-10 Hz of maximum frequency and up to 30 microvolts of maximum amplitude. This is maximum posterior head regions bilaterally symmetrical. Polymorphic mid frequency theta activity of modest voltage is seen over all head regions without clear focal or regional predominance. Anterior head region maximum bilaterally symmetrical low voltage fast activity in the beta range is present. At no time during the waking tracing is there evidence for potentially epileptogenic activity in the form of polyspike or spike wave bursts, focal sharp waves or focal spikes. BRIEF INTERPRETATION: This EEG is essentially normal during wakefulness without evidence for focal or generalized encephalopathy and without evidence for potentially epileptogenic activity.
[2017-01-15] VITALS (8 sets, daily range): BP systolic 111–151; BP diastolic 52–95; PULSE 54–95; TEMP 36.4–36.8; O2SAT 93–98; Ht 157.5 cm; Wt 67.1 kg
[2017-01-15] MEDS: CEFEPIME IV 2,000 MG in DEXTROSE 5% 100ML 100 ML IV SCH (01:50)
[2017-01-15] MEDS: HEPARIN SOD 5000 UNIT/0.5 ML CARP SQ SCH ×3 (06:15→21:48)
--- NOTE | 2017-01-15 06:27 | Clinical Documentation Query ---
CLINICAL DOCUMENTATION QUERY 76 year old female who presents to the Emergency Department for evaluation after a fall and loss of consciousness. ED notes +LOC and documented head trauma. In your clinical opinion is this patient being managed for: ( x ) Head injury with +LOC of less than 30min. ( ) Other explanation of clinical findings (Please Explain) ( ) Unable to determine (Please Define) ( ) Need to Discuss ( ) Not Agree The medical record reflects the following clinical findings, treatment, and risk factors. Clinical Indicators: +LOC in ED after fall. Patient sustained orbital fx and right forehead laceration with fall. Treatment: Heat CTs, laceration repair, fall precautions, EEG, Risk Factors: Fall with head trauma Please clarify and document your clinical opinion in the progress notes and discharge summary. Terms such as "probable", "suspected", "likely", "questionable", "possible", or "still to be ruled out" are acceptable. IF IN AGREEMENT, YOU MUST DOCUMENT ABOVE DIAGNOSTIC STATEMENT IN DAILY PROGRESS NOTES AND DISCHARGE SUMMARY. This document is not part of the patient's record. Thank You, Cristopher Hernadez, RAMON [phone]
[2017-01-15 06:39] LABS: BASO % 0.3 %; BASO ABS # 0.03 K/uL (0-0.2); COMPLETE YES; IG% 0.3 %; LYMPH % 16.3 %; LYMPH ABS # 1.65 K/uL (1.2-3.4); MEAN CELL VOLUME 89.5 fL (80-100); MEAN CORPUSCULAR HEMOGLOBIN 29.2 pg (25-34); MEAN CORPUSCULAR HGB CONC 32.6 g/dl (32-36); MONO % 9.5 %; NEUT % 72.6 %; PLATELET COUNT 281 K/uL (130-400); RED BLOOD COUNT 3.91 M/uL (4.2-5.4); WHITE BLOOD COUNT 10.11 K/uL (4.8-10.8)
[2017-01-15] MEDS: INSULIN ASPART 100 UNITS/ML 3 ML PEN SC SCH ×4 (07:00→20:45)
[2017-01-15 07:15] LABS: BUN/CREATININE RATIO 10.2 (10-20); CALCIUM 8.5 mg/dl (8.5-10.1); CREATININE 1.1 mg/dl (0.60-1.20); POTASSIUM 4.4 mmol/L (3.5-5.1)
[2017-01-15] MEDS: METRONIDAZOLE / NSS 500 MG in PREMIXED NSS 100 ML IV SCH (07:59)
[2017-01-15] MEDS: METOPROLOL SUCC 25MG EXT REL TAB PO SCH (08:05)
[2017-01-15] MEDS: ASPIRIN 81 MG ECTAB PO SCH (08:05)
[2017-01-15] MEDS: RANITIDINE HCL 150 MG TAB PO SCH ×2 (08:06→21:41)
[2017-01-15] MEDS ORDERED: INSULIN GLARGINE SOLOSTAR 100 UNITS/ML 3 ML PEN SC SCH (09:00)
--- NOTE | 2017-01-15 09:41 | Progress Note ---
Internal Med Progress Note Date of Service: Jan 15, 2017. Provider Documentation: SUBJECTIVE: Seen and examined at bedside. States right sided pleuritic pain is improving. Also states having diarrhea- had 3 BMs today. Denies any SOB, palpitations, dizziness, blurred vision. OBJECTIVE: Vital Signs-as noted below Physical Exam: General Appearance:Moderately built and nourished, no apparent distress Head: normocephalic, Atraumatic Eyes: normal inspection, EOMI, PERRLA +Sutures on right side of orbit Neck: supple, no Trachea midline Respiratory/Chest: Normal breath sounds, + minimal creps b/l, + mild tender of right subcostal region Cardiovascular: S1, S2, No murmur Abdomen/GI:Soft, mildly distended, Bowel sounds present Extremities/Musculoskelatal:normal inspection, no edema Neurologic/Psych:AAOX3, grossly no focal neurological deficits Skin: normal color, warm, + post surgical scars on B/L knees Lab data as noted below. ASSESSMENT & PLAN: SEPSIS: secondary to UTI Also has history of chronic diarrhea since 6 months: r/o c.diff Cultures:Urine: + Gram negative bacilli Blood: No growth to date stool studies: C.diff negative Continue IV Cefepime DC IV flagyl Lactate:wnl Leukocytosis resolved CXR/CT chest:No acute process CT abdomen:Chronic sigmoid diverticulosis with moderate wall thickening S/P IV fluids UNWITNESSED SYNCOPE: Likely from orthostasis secondary to dehydration/illness Patient reports feeling lightheaded prior to syncopal episode S/P IV fluids EEG:Normal, without evidence for focal or generalized encephalopathy and without evidence for potentially epileptogenic activity. ECHO: pending CT head:wnl Monitor in Tele: r/o arrhythmias Nondisplaced cortical fracture anterior right orbital margin Head injury with +LOC Secondary to fall from syncope S/P sutures CT head: Partial opacification right maxillary sinus. Brain specifically is negative Non operative management CHRONIC DIARRHEA: Unclear etiology Stool: C.diff negative Will consult GI consult for chronic diarrhea CT abd: sigmoid diverticulosis with moderate wall thickening PLEURITIC RIGHT SIDED CHEST PAIN: Likely musculoskeletal secondary to fall Pain control PT/OT Troponin: Negative KIMBERLEE: Likely prerenal Resolved S/P IV Fluids Monitor Hold home ACEI inhibitor for now DM II ISS, Accu checks HTN: Stable monitor H/O R breast cancer S/P surgery, tamoxifen therapy DVT PX: Heparin subQ. CODE STATUS: Full code. Vital Signs: Date Time Temp Pulse Resp B/P Pulse Ox O2 Delivery O2 Flow Rate FiO2 01/15/17 08:02 36.8 66 18 118/56 96 01/15/17 08:00 Room Air 01/15/17 04:00 Room Air 01/15/17 04:00 36.6 54 18 124/56 95 Room Air 01/15/17 00:01 Room Air 01/15/17 00:01 36.8 62 16 111/52 95 Room Air 01/14/17 20:00 95 Room Air 01/14/17 19:19 36.8 62 18 112/53 96 Room Air 01/14/17 16:00 95 Room Air 01/14/17 15:46 36.6 63 18 116/53 95 Room Air 01/14/17 14:09 36.7 67 18 106/45 95 Room Air 01/14/17 12:03 98 Nasal Cannula 2.0 01/14/17 12:00 36.4 70 16 144/68 95 Nasal Cannula 2.0 Lab Results: Results Past 24 Hours Test 01/14/17 11:23 01/14/17 16:07 01/14/17 20:21 01/15/17 06:06 Range/Units Bedside Glucose 155 105 152 70-90 mg/dl White Blood Count 10.11 4.8-10.8 K/uL Red Blood Count 3.91 4.2-5.4 M/uL Hemoglobin 11.4 12.0-16.0 g/dL Hematocrit 35.0 37-47 % Mean Corpuscular Volume 89.5 80-100 fL Mean Corpuscular Hemoglobin 29.2 25-34 pg Mean Corpuscular Hemoglobin Concent 32.6 32-36 g/dl Platelet Count 281 130-400 K/uL Mean Platelet Volume 9.0 7.4-10.4 fL Neutrophils (%) (Auto) 72.6 % Lymphocytes (%) (Auto) 16.3 % Monocytes (%) (Auto) 9.5 % Eosinophils (%) (Auto) 1.0 % Basophils (%) (Auto) 0.3 % Neutrophils # (Auto) 7.34 1.4-6.5 K/uL Lymphocytes # (Auto) 1.65 1.2-3.4 K/uL Monocytes # (Auto) 0.96 0.11-0.59 K/uL Eosinophils # (Auto) 0.10 0-0.5 K/uL Basophils # (Auto) 0.03 0-0.2 K/uL RDW Standard Deviation 50.3 36.4-46.3 fL RDW Coefficient of Variation 15.4 11.5-14.5 % Immature Granulocyte % (Auto) 0.3 % Immature Granulocyte # (Auto) 0.03 0.00-0.02 K/uL Sodium Level 143 136-145 mmol/L Potassium Level 4.4 3.5-5.1 mmol/L Chloride Level 109 98-107 mmol/L Carbon Dioxide Level 26 21-32 mmol/L Anion Gap 8.0 3-11 mmol/L Blood Urea Nitrogen 11 7-18 mg/dl Creatinine 1.10 0.60-1.20 mg/dl Est Creatinine Clear Calc Drug Dose 40.3 ml/min Estimated GFR () 57.3 Estimated GFR (Non- 49.4 BUN/Creatinine Ratio 10.2 10-20 Random Glucose 124 70-99 mg/dl Calcium Level 8.5 8.5-10.1 mg/dl Microbiology Results 01/14/17 WBC Smear, Received Pending 01/14/17 Shiga Toxin Test, Received Pending 01/14/17 Stool Culture, Received Pending 01/14/17 C.difficile Toxin B Gene (PCR) - Final, Complete No C. difficile toxin B gene detected
--- NOTE | 2017-01-15 12:07 | Gastrointestinal Consultation ---
Gastrointestinal Consultation History of Present Illness Patient is a 76 year old female with past medical history significant for chronic diarrhea, atypical ductal hyperplasia of the right breast s/p tamoxifen & surgery, DMT2 hypertension, diverticulosis, hemorrhoids and chronic anemia who GI is consulted for evaluation of chronic diarrhea without any alarm symptoms. She denies any black/bloody stools. She reports BMs up to 3 times daily. No weight loss per patient. She was on metormin for diabetes treatment and this was d/c because of diarrhea, however, stools did not resume normal status. CT abdomen: Liver is uniform. Prior cholecystectomy. Pancreas is unremarkable. Kidneys show no evidence for hydronephrosis. Bowel pattern is nonobstructive throughout. Degenerative change of the lumbar spine and bony pelvis. Chronic sigmoid diverticulosis. Tortuous and redundant sigmoid on anatomic basis. Normal appendix. Social History Smoking Status: Former Smoker Drug Use: none Marital Status: Housing Status: lives with family Occupation Status: retired Allergies Coded Allergies: No Known Allergies (Unverified , 10/03/14) Current Medications Home Meds and Scripts Medications Dose Route/Sig Max Daily Dose Days Date Category Potassium 99 Mg Tab 2 Tabs PO QPM 01/13/17 Reported Aspirin Ec (Aspirin) 81 Mg Tab 81 Mg PO DAILY 01/13/17 Reported Naprosyn (Naproxen) 500 Mg Tab 500 Mg PO BID PRN 01/13/17 Reported Glucotrol (Glipizide) 5 Mg Tab 5 Mg PO BID 01/13/17 Reported Prinivil (Lisinopril) 5 Mg Tab 5 Mg PO DAILY 01/13/17 Reported Vitamin C Tr/Stephanie Hips (Ascorbic Acid) 500 Mg Tab 1,000 Mg PO QPM 05/30/14 Reported Zantac (Ranitidine HCl) 150 Mg Tab 150 Mg PO BID 05/30/14 Reported D3 (Cholecalciferol) 2,000 Unit Cap 1 Tab PO HS 05/30/14 Reported Calcium 600 + Minerals (Calcium Carbonate-Vitamin D W/) 1 Tab Tab 1 Tab PO BID 05/30/14 Reported Toprol-Xl (Metoprolol Succinate) 25 Mg Tabcr 25 Mg PO DAILY 05/30/14 Reported Review of Systems Constitutional: No chills, No fever Respiratory: No cough, No shortness of breath Cardiac: No chest pain, No edema Abdomen: + diarrhea, No GI bleeding, No constipation, No nausea, No pain, No vomiting Physical Exam Date Time Temp Pulse Resp B/P Pulse Ox O2 Delivery O2 Flow Rate FiO2 01/15/17 11:56 36.4 67 16 139/62 94 Room Air 01/15/17 08:02 36.8 66 18 118/56 96 01/15/17 08:00 Room Air 01/15/17 04:00 Room Air 01/15/17 04:00 36.6 54 18 124/56 95 Room Air 01/15/17 00:01 Room Air 01/15/17 00:01 36.8 62 16 111/52 95 Room Air 01/14/17 20:00 95 Room Air 01/14/17 19:19 36.8 62 18 112/53 96 Room Air 01/14/17 16:00 95 Room Air 01/14/17 15:46 36.6 63 18 116/53 95 Room Air 01/14/17 14:09 36.7 67 18 106/45 95 Room Air General Appearance: no apparent distress Eyes: PERRL, EOMI ENT: hearing grossly normal Neck: supple, no adenopathy Respiratory/Chest: chest non-tender, lungs clear, normal breath sounds, no respiratory distress, no accessory muscle use Cardiovascular: regular rate, rhythm, no edema, no gallop, no JVD Abdomen: normal bowel sounds, non tender, soft, no pulsatile mass Neurologic/Psych: alert, normal mood/affect, oriented x 3 Skin: normal color, no jaundice, warm/dry Laboratory Results Last 24 Hours Test 01/14/17 16:07 01/14/17 20:21 01/15/17 06:06 01/15/17 11:31 Bedside Glucose 105 mg/dl 152 mg/dl 125 mg/dl White Blood Count 10.11 K/uL Red Blood Count 3.91 M/uL Hemoglobin 11.4 g/dL Hematocrit 35.0 % Mean Corpuscular Volume 89.5 fL Mean Corpuscular Hemoglobin 29.2 pg Mean Corpuscular Hemoglobin Concent 32.6 g/dl Platelet Count 281 K/uL Mean Platelet Volume 9.0 fL Neutrophils (%) (Auto) 72.6 % Lymphocytes (%) (Auto) 16.3 % Monocytes (%) (Auto) 9.5 % Eosinophils (%) (Auto) 1.0 % Basophils (%) (Auto) 0.3 % Neutrophils # (Auto) 7.34 K/uL Lymphocytes # (Auto) 1.65 K/uL Monocytes # (Auto) 0.96 K/uL Eosinophils # (Auto) 0.10 K/uL Basophils # (Auto) 0.03 K/uL RDW Standard Deviation 50.3 fL RDW Coefficient of Variation 15.4 % Immature Granulocyte % (Auto) 0.3 % Immature Granulocyte # (Auto) 0.03 K/uL Sodium Level 143 mmol/L Potassium Level 4.4 mmol/L Chloride Level 109 mmol/L Carbon Dioxide Level 26 mmol/L Anion Gap 8.0 mmol/L Blood Urea Nitrogen 11 mg/dl Creatinine 1.10 mg/dl Est Creatinine Clear Calc Drug Dose 40.3 ml/min Estimated GFR () 57.3 Estimated GFR (Non- 49.4 BUN/Creatinine Ratio 10.2 Random Glucose 124 mg/dl Calcium Level 8.5 mg/dl Impression Patient is a 76 year old female with a history of loose stools x 9 months. She was previously evaluated for this with colonoscopy without any pathological cause of diarrhea identified. Her stools cultures as an inpatient have been in conclusive. She denies any alarm symptoms. Plan Avoid dairy Dairy free probiotic Outpatient colonoscopy in 1-2 weeks No GI contraindication to discharge No GI contraindication to advancing a diet GI will sign off. ATTESTATION: I have performed a history and physical examination of this patient and reviewed the electronic record. Specifically, on physical examination there is no abdominal tenderness. Will plan outpatient colonoscopy. I have discussed the case with ADAM Wright. The above note reflects my findings, conclusions, and recommendations. Reymundo Benitez MD
[2017-01-15] MEDS: TRAMADOL HCL 50 MG TAB PO PRN ×2 (12:11→19:40)
--- NOTE | 2017-01-15 12:25 | ECHOCARDIOGRAM REPORT ---
*NOTICE TO RECEIVING DEMOCRAT AGENCY This information is strictly Confidential and protected under [place] law. [place] law prohibits you from making any further disclosure of this information unless further disclosure is expressly permitted by the written consent of the person to whom it pertains or is authorized by law. A general authorization for the release of medical or other information is not sufficient for this purpose. Hospital accepts no responsibility if the information is made available to any other person, INCLUDING THE PATIENT. Interpretation Summary * Name: KATIE MCDONOUGH Study Date: 01/14/2017 04:48 PM BP: 116/53 mmHg * Patient Location: [facility] HR: 63 * : 1940 (M/d/yyyy) Gender: Female Height: 62 in * Age: 76 yrs Ethnicity: [place] Weight: 147 lb * Ordering Physician: Alex Guerrero * Performed By: Ngoc Griffin * * Reason For Study: CHEST PAIN, SYNCOPE * BSA: 1.7 m2 * -- Conclusions -- * The left ventricular cavity is small. * There is moderate concentric left ventricular hypertrophy. * Ejection Fraction = >70 %. * The left ventricular wall motion is normal. * The right ventricular systolic function is normal. * The left atrium is moderately dilated. * The right atrium is mild to moderately dilated. Procedure Details * A complete two-dimensional transthoracic echocardiogram was performed (2D, M-mode, Doppler and color flow Doppler). Left Ventricle * The left ventricular cavity is small. * There is moderate concentric left ventricular hypertrophy. * Ejection Fraction = >70 %. * The left ventricular wall motion is normal. Right Ventricle * The right ventricle is grossly normal size. * The right ventricular systolic function is normal. Atria * The left atrium is moderately dilated. * The right atrium is mild to moderately dilated. Mitral Valve * The mitral valve is grossly normal. * Significant mitral regurgitation is absent. Tricuspid Valve * The tricuspid valve is not well visualized, but is grossly normal. * Significant tricuspid regurgitation is absent. Aortic Valve * The aortic valve is not well visualized. * No hemodynamically significant valvular aortic stenosis. * There is no significant aortic regurgitation. Pulmonic Valve * The pulmonic valve is not well visualized. * There is no significant pulmonary regurgitation. Great Vessels * The aortic root and proximal ascending aorta are normal sized. Pericardium/Pleural * There is no pericardial effusion. MMode 2D Measurements and Calculations IVSd 1.3 cm IVSs 2.1 cm LVIDd 3.9 cm LVIDs 2.3 cm LVPWd 1.1 cm LVPWs 1.5 cm IVS/LVPW 1.2 FS 40.9 % EDV(Teich) 67.8 ml ESV(Teich) 18.8 ml EF(Teich) 72.3 % EDV(cubed) 61.5 ml ESV(cubed) 12.7 ml EF(cubed) 79.3 % % IVS thick 63.2 % % LVPW thick 42.5 % LV mass(C)d 158.3 grams LV mass(C)dI 94.3 grams/m\S\2 LV mass(C)s 167.0 grams LV mass(C)sI 99.5 grams/m\S\2 SV(Teich) 49.0 ml SI(Teich) 29.2 ml/m\S\2 SV(cubed) 48.8 ml SI(cubed) 29.0 ml/m\S\2 Ao root diam 0.89 cm Ao root area 0.62 cm\S\2 LA dimension 4.1 cm asc Aorta Diam 3.1 cm LA/Ao 4.6 LVOT diam 1.8 cm LVOT area 2.5 cm\S\2 LVAd ap4 23.2 cm\S\2 LVLd ap4 7.5 cm EDV(MOD-sp4) 58.6 ml EDV(sp4-el) 61.3 ml LVAs ap4 10.1 cm\S\2 LVLs ap4 5.6 cm ESV(MOD-sp4) 15.2 ml ESV(sp4-el) 15.5 ml EF(MOD-sp4) 74.0 % EF(sp4-el) 74.7 % LVAd ap2 23.8 cm\S\2 LVLd ap2 7.2 cm EDV(MOD-sp2) 64.0 ml EDV(sp2-el) 66.6 ml LVAs ap2 10.6 cm\S\2 LVLs ap2 5.6 cm ESV(MOD-sp2) 16.6 ml ESV(sp2-el) 17.1 ml EF(MOD-sp2) 74.0 % EF(sp2-el) 74.3 % LVLd %diff -3.38 % EDV(MOD-bp) 60.8 ml LVLs %diff -0.41 % ESV(MOD-bp) 15.9 ml EF(MOD-bp) 73.9 % SV(MOD-sp4) 43.4 ml SI(MOD-sp4) 25.9 ml/m\S\2 SV(MOD-sp2) 47.4 ml SI(MOD-sp2) 28.2 ml/m\S\2 SV(MOD-bp) 44.9 ml SI(MOD-bp) 26.8 ml/m\S\2 SV(sp4-el) 45.8 ml SI(sp4-el) 27.3 ml/m\S\2 SV(sp2-el) 49.5 ml SI(sp2-el) 29.5 ml/m\S\2 Doppler Measurements and Calculations MV E max angelo 87.6 cm/sec MV A max angelo 75.9 cm/sec MV E/A 1.2 MV dec time 0.20 sec Ao V2 max 189.2 cm/sec Ao max PG 14.3 mmHg Ao max PG (full) 10.5 mmHg Ao V2 mean 114.5 cm/sec Ao mean PG 6.4 mmHg Ao mean PG (full) 4.5 mmHg Ao V2 VTI 46.6 cm JEREMIE(I,A) 1.4 cm\S\2 JEREMIE(I,D) 1.4 cm\S\2 JEREMIE(V,A) 1.3 cm\S\2 JEREMIE(V,D) 1.3 cm\S\2 LV V1 max PG 3.8 mmHg LV V1 mean PG 1.9 mmHg LV V1 max 97.4 cm/sec LV V1 mean 62.1 cm/sec LV V1 VTI 25.6 cm SV(Ao) 28.8 ml SI(Ao) 17.2 ml/m\S\2 SV(LVOT) 63.6 ml SI(LVOT) 37.9 ml/m\S\2 PA V2 max 60.4 cm/sec PA max PG 1.5 mmHg PI end-d angelo 99.3 cm/sec TR max angelo 253.1 cm/sec
[2017-01-15] MEDS: HYDROmorphone INJ 0.5 MG/0.5 ML SYR IV PRN (16:45)
[2017-01-15] MEDS: ONDANSETRON INJ 2 MG/ML 2 ML VIAL IV PRN (16:55)
[2017-01-16] MEDS: CEFEPIME IV 2,000 MG in DEXTROSE 5% 100ML 100 ML IV SCH (02:45)
[2017-01-16] MEDS: HEPARIN SOD 5000 UNIT/0.5 ML CARP SQ SCH ×3 (06:48→22:00)
[2017-01-16 07:31] LABS: BUN/CREATININE RATIO 10.4 (10-20); CALCIUM 8.7 mg/dl (8.5-10.1); POTASSIUM 4.1 mmol/L (3.5-5.1)
[2017-01-16 07:39] VITALS: BP 172/76; PULSE 57; TEMP 36.4; O2SAT 93
[2017-01-16] MEDS: INSULIN ASPART 100 UNITS/ML 3 ML PEN SC SCH ×4 (09:06→21:06)
[2017-01-16] MEDS: ASPIRIN 81 MG ECTAB PO SCH (09:11)
[2017-01-16] MEDS: METOPROLOL SUCC 25MG EXT REL TAB PO SCH (09:12)
[2017-01-16] MEDS: RANITIDINE HCL 150 MG TAB PO SCH ×2 (09:12→21:06)
[2017-01-16] MEDS: TRAMADOL HCL 50 MG TAB PO PRN (09:13)
[2017-01-16] MEDS: ACETAMINOPHEN 325 MG TAB PO PRN ×2 (14:40→23:41)
--- NOTE | 2017-01-16 15:01 | Progress Note ---
Internal Med Progress Note Date of Service: Jan 16, 2017. Provider Documentation: SUBJECTIVE: Seen and examined at bedside. Persistent right sided pleuritic pain with movement. Had 1 loose BM today. Denies any SOB, palpitations, dizziness, blurred vision. Headache is improving OBJECTIVE: Vital Signs-as noted below Physical Exam: General Appearance:Moderately built and nourished, no apparent distress Head: normocephalic, Atraumatic Eyes: normal inspection, EOMI, PERRLA +Sutures on right side of orbit Neck: supple, no Trachea midline Respiratory/Chest: Normal breath sounds, + minimal creps b/l, + mild tender of right subcostal region Cardiovascular: S1, S2, No murmur Abdomen/GI:Soft, mildly distended, Bowel sounds present Extremities/Musculoskelatal:normal inspection, no edema Neurologic/Psych:AAOX3, grossly no focal neurological deficits Skin: normal color, warm, + post surgical scars on B/L knees Lab data as noted below. ASSESSMENT & PLAN: SEPSIS: secondary to UTI Also has history of chronic diarrhea since 6 months: r/o c.diff Cultures:Urine: E.coli Blood: No growth to date stool studies: C.diff negative On IV Cefepime >>>> Switch to PO Levaquin DC IV flagyl Lactate:wnl Leukocytosis resolved CXR/CT chest:No acute process CT abdomen:Chronic sigmoid diverticulosis with moderate wall thickening S/P IV fluids UNWITNESSED SYNCOPE: Likely from orthostasis secondary to dehydration/illness Patient reports feeling lightheaded prior to syncopal episode S/P IV fluids EEG:Normal, without evidence for focal or generalized encephalopathy and without evidence for potentially epileptogenic activity. ECHO: Left ventricular wall motion is normal; EF>70 CT head:wnl Monitor Tele: No arrhythmias Nondisplaced cortical fracture anterior right orbital margin Head injury with +LOC Secondary to fall from syncope S/P sutures CT head: Partial opacification right maxillary sinus. Brain specifically is negative Non operative management CHRONIC DIARRHEA: Unclear etiology Stool: C.diff negative Appreciate GI input CT abd: sigmoid diverticulosis with moderate wall thickening Needs colonoscopy as outpatient PLEURITIC RIGHT SIDED CHEST PAIN: Likely musculoskeletal secondary to fall Pain control PT/OT Troponin: Negative Heat therapy Check RUQ ABD USD KIMBERLEE: Likely prerenal Resolved S/P IV Fluids Monitor Hold home ACEI inhibitor for now DM II ISS, Accu checks HTN: Elevated today Resume lisinopril, continue BB monitor H/O R breast cancer S/P surgery, tamoxifen therapy DVT PX: Heparin subQ. CODE STATUS: Full code. DISPOSITION: Patient needs SNF Vs Rehab: Patient agreeable Needs colonoscopy as outpatient Plan to DC in next 48 hours if stable PROCEDURES: ECHO: * The left ventricular cavity is small. * There is moderate concentric left ventricular hypertrophy. * Ejection Fraction = >70 %. * The left ventricular wall motion is normal. * The right ventricular systolic function is normal. * The left atrium is moderately dilated. * The right atrium is mild to moderately dilated. Vital Signs: Date Time Temp Pulse Resp B/P Pulse Ox O2 Delivery O2 Flow Rate FiO2 01/16/17 15:15 36.5 59 20 133/72 95 Room Air 01/16/17 08:00 Room Air 01/16/17 07:39 36.4 57 18 172/76 93 Room Air 01/16/17 00:41 Room Air 01/15/17 23:06 36.6 61 18 129/65 93 Room Air 01/15/17 18:41 Room Air Lab Results: Results Past 24 Hours Test 01/15/17 16:24 01/15/17 20:34 01/16/17 06:44 01/16/17 07:00 Range/Units Bedside Glucose 120 156 112 70-90 mg/dl Sodium Level 142 136-145 mmol/L Potassium Level 4.1 3.5-5.1 mmol/L Chloride Level 105 98-107 mmol/L Carbon Dioxide Level 27 21-32 mmol/L Anion Gap 10.0 3-11 mmol/L Blood Urea Nitrogen 10 7-18 mg/dl Creatinine 1.00 0.60-1.20 mg/dl Est Creatinine Clear Calc Drug Dose 44.3 ml/min Estimated GFR () 64.3 Estimated GFR (Non- 55.5 BUN/Creatinine Ratio 10.4 10-20 Random Glucose 118 70-99 mg/dl Calcium Level 8.7 8.5-10.1 mg/dl Test 01/16/17 11:29 Range/Units Bedside Glucose 115 70-90 mg/dl
[2017-01-16 15:15] VITALS: BP 133/72; PULSE 59; TEMP 36.5; O2SAT 95
[2017-01-16] MEDS ORDERED: LISINOPRIL 5 MG TAB PO ONE (15:30)
[2017-01-16] MEDS ORDERED: LEVOFLOXACIN 750 MG TAB PO SCH (16:00)
--- NOTE | 2017-01-16 17:01 | DIAGNOSTIC IMAGING REPORT ---
ABDOMINAL ULTRASOUND, RIGHT UPPER QUADRANT HISTORY: Right upper quadrant abdominal pain.. COMPARISON: Abdomen and pelvis CT 01/13/2017. FINDINGS: Pancreas: The head of the pancreas is within normal limits. The body and tail are obscured by overlying bowel gas. Liver: Unremarkable. Gallbladder: The gallbladder is surgically absent. CBD: 5 mm. Right kidney: No hydronephrosis. Mild to moderate cortical renal thinning which is likely age-related. IMPRESSION: Prior cholecystectomy. No significant abnormality within the right upper quadrant. Electronically signed by: Anatoly Wang M.D. 01/16/2017 4:59 PM Dictated Date/Time: 01/16/2017 4:58 PM
[2017-01-16 23:27] VITALS: BP 146/71; PULSE 57; TEMP 36.4; O2SAT 97
[2017-01-17] MEDS: HEPARIN SOD 5000 UNIT/0.5 ML CARP SQ SCH ×2 (06:27→15:02)
[2017-01-17 07:06] LABS: BASO % 0.2 %; BASO ABS # 0.02 K/uL (0-0.2); COMPLETE YES; EOS % 1.3 %; HEMATOCRIT 36.1 % (37-47); IG% 0.2 %; LYMPH % 30.6 %; LYMPH ABS # 2.63 K/uL (1.2-3.4); MEAN CELL VOLUME 86.6 fL (80-100); MEAN CORPUSCULAR HEMOGLOBIN 28.3 pg (25-34); MEAN CORPUSCULAR HGB CONC 32.7 g/dl (32-36); MEAN PLATELET VOLUME 8.6 fL (7.4-10.4); MONO % 10.1 %; NEUT % 57.6 %; PLATELET COUNT 294 K/uL (130-400); RED BLOOD COUNT 4.17 M/uL (4.2-5.4); WHITE BLOOD COUNT 8.59 K/uL (4.8-10.8)
[2017-01-17 07:17] VITALS: BP 166/77; PULSE 56; TEMP 36.7; O2SAT 94
[2017-01-17 07:38] LABS: BUN/CREATININE RATIO 12.2 (10-20); CALCIUM 8.7 mg/dl (8.5-10.1)
[2017-01-17] MEDS ORDERED: LISINOPRIL 5 MG TAB PO SCH (08:00)
[2017-01-17] MEDS: HYDROmorphone INJ 0.5 MG/0.5 ML SYR IV PRN (08:40)
[2017-01-17] MEDS: ASPIRIN 81 MG ECTAB PO SCH (08:44)
[2017-01-17] MEDS: RANITIDINE HCL 150 MG TAB PO SCH (08:45)
[2017-01-17] MEDS: METOPROLOL SUCC 25MG EXT REL TAB PO SCH (08:45)
[2017-01-17] MEDS: INSULIN ASPART 100 UNITS/ML 3 ML PEN SC SCH ×2 (09:06→12:58)
--- NOTE | 2017-01-17 14:34 | Progress Note ---
Internal Med Progress Note Date of Service: Jan 17, 2017. Provider Documentation: SUBJECTIVE: Seen and examined at bedside. Patient states her right sided pleuritic pain is improving. Headache resolved as well. Denies any chest pain, SOB. Eager to be discharged as a family member and has on Wednesday. She doesn't want any rehab/SNF/Home health placement. OBJECTIVE: Vital Signs-as noted below Physical Exam: General Appearance:Moderately built and nourished, no apparent distress Head: normocephalic, Atraumatic Eyes: normal inspection, EOMI, PERRLA +Sutures on right side of orbit Neck: supple, no Trachea midline Respiratory/Chest: Normal breath sounds, CTA Cardiovascular: S1, S2, No murmur Abdomen/GI:Soft, mildly distended, Bowel sounds present Extremities/Musculoskelatal:normal inspection, no edema Neurologic/Psych:AAOX3, grossly no focal neurological deficits Skin: normal color, warm, + post surgical scars on B/L knees Lab data as noted below. ASSESSMENT & PLAN: SEPSIS: secondary to UTI Also has history of chronic diarrhea since 6 months: r/o c.diff Cultures:Urine: E.coli Blood: No growth to date stool studies: C.diff negative On IV Cefepime >>>> Switch to PO Levaquin DC IV flagyl Lactate:wnl Leukocytosis resolved CXR/CT chest:No acute process CT abdomen:Chronic sigmoid diverticulosis with moderate wall thickening S/P IV fluids UNWITNESSED SYNCOPE: Likely from orthostasis secondary to dehydration/illness Patient reports feeling lightheaded prior to syncopal episode S/P IV fluids EEG:Normal, without evidence for focal or generalized encephalopathy and without evidence for potentially epileptogenic activity. ECHO: Left ventricular wall motion is normal; EF>70 CT head:wnl Monitor Tele: No arrhythmias Nondisplaced cortical fracture anterior right orbital margin Head injury with +LOC Secondary to fall from syncope S/P sutures CT head: Partial opacification right maxillary sinus. Brain specifically is negative Non operative management CHRONIC DIARRHEA: Unclear etiology Stool: C.diff negative Appreciate GI input CT abd: sigmoid diverticulosis with moderate wall thickening Needs colonoscopy as outpatient PLEURITIC RIGHT SIDED CHEST PAIN: Likely musculoskeletal secondary to fall Pain control PT/OT Troponin: Negative Heat/Cold therapy RUQ ABD USD:wnl KIMBERLEE: Likely prerenal Resolved S/P IV Fluids Monitor Will resume lisinopril today DM II ISS, Accu checks HTN: Elevated today Resume lisinopril, continue BB monitor H/O R breast cancer S/P surgery, tamoxifen therapy DVT PX: Heparin subQ. CODE STATUS: Full code. DISPOSITION: Patient may benefit from SNF Vs Rehab: She doesn't want any rehab/SNF/Home health placement: discussed on 01/17/17 Needs colonoscopy as outpatient Plan to discharge home today. Follow up with your PCP on 01/21/17 at 2:10pm PROCEDURES: ECHO: * The left ventricular cavity is small. * There is moderate concentric left ventricular hypertrophy. * Ejection Fraction = >70 %. * The left ventricular wall motion is normal. * The right ventricular systolic function is normal. * The left atrium is moderately dilated. * The right atrium is mild to moderately dilated. Vital Signs: Date Time Temp Pulse Resp B/P Pulse Ox O2 Delivery O2 Flow Rate FiO2 01/17/17 08:00 Room Air 01/17/17 07:17 36.7 56 22 166/77 94 Room Air 01/17/17 00:00 Room Air 01/16/17 23:27 36.4 57 18 146/71 97 Room Air 01/16/17 19:15 Room Air 01/16/17 16:00 Room Air 01/16/17 15:15 36.5 59 20 133/72 95 Room Air Lab Results: Results Past 24 Hours Test 01/16/17 16:45 01/16/17 20:09 01/17/17 06:37 01/17/17 07:33 Range/Units Bedside Glucose 117 128 117 70-90 mg/dl White Blood Count 8.59 4.8-10.8 K/uL Red Blood Count 4.17 4.2-5.4 M/uL Hemoglobin 11.8 12.0-16.0 g/dL Hematocrit 36.1 37-47 % Mean Corpuscular Volume 86.6 80-100 fL Mean Corpuscular Hemoglobin 28.3 25-34 pg Mean Corpuscular Hemoglobin Concent 32.7 32-36 g/dl Platelet Count 294 130-400 K/uL Mean Platelet Volume 8.6 7.4-10.4 fL Neutrophils (%) (Auto) 57.6 % Lymphocytes (%) (Auto) 30.6 % Monocytes (%) (Auto) 10.1 % Eosinophils (%) (Auto) 1.3 % Basophils (%) (Auto) 0.2 % Neutrophils # (Auto) 4.94 1.4-6.5 K/uL Lymphocytes # (Auto) 2.63 1.2-3.4 K/uL Monocytes # (Auto) 0.87 0.11-0.59 K/uL Eosinophils # (Auto) 0.11 0-0.5 K/uL Basophils # (Auto) 0.02 0-0.2 K/uL RDW Standard Deviation 47.7 36.4-46.3 fL RDW Coefficient of Variation 15.0 11.5-14.5 % Immature Granulocyte % (Auto) 0.2 % Immature Granulocyte # (Auto) 0.02 0.00-0.02 K/uL Sodium Level 141 136-145 mmol/L Potassium Level 4.0 3.5-5.1 mmol/L Chloride Level 104 98-107 mmol/L Carbon Dioxide Level 28 21-32 mmol/L Anion Gap 9.0 3-11 mmol/L Blood Urea Nitrogen 12 7-18 mg/dl Creatinine 1.00 0.60-1.20 mg/dl Est Creatinine Clear Calc Drug Dose 44.3 ml/min Estimated GFR () 64.3 Estimated GFR (Non- 55.5 BUN/Creatinine Ratio 12.2 10-20 Random Glucose 111 70-99 mg/dl Calcium Level 8.7 8.5-10.1 mg/dl Test 01/17/17 11:24 Range/Units Bedside Glucose 180 70-90 mg/dl
[2017-01-17] MEDS ORDERED: METO25TA3 PO (14:37)
[2017-01-17] MEDS ORDERED: LISI5TAB PO (14:37)
[2017-01-17] MEDS ORDERED: LVQ750 PO (14:37)
--- NOTE | 2017-01-17 14:42 | Discharge Summary ---
Discharge Summary Admission Date: Jan 13, 2017 at 23:38 Discharge Date: Jan 17, 2017 Discharge Disposition: Home Principal Diagnosis: Sepsis, UTI, Syncope Procedures: Maxillofacial CT: 1. Nondisplaced cortical fracture anterior right orbital margin. 2. No evidence for fat or muscular entrapment. 3. Moderate mucosal thickening of the right maxillary and right ethmoid sinuses. 4. Study is otherwise negative. CT Head: Partial opacification right maxillary sinus. The brain specifically is negative. CXR: Negative chest. CT Neck: No fractures within the cervical spine. RUQ ABD USD: Prior cholecystectomy. No significant abnormality within the right upper quadrant CT chest: No significant abnormality identified within the chest. Mild bibasilar interstitial change CT ABD: 1. No acute process of the abdomen or pelvis. 2. Chronic sigmoid diverticulosis with moderate wall thickening and sigmoid redundancy on anatomic basis. 3. Degenerative change with no acute bony abnormality. Consultations: GI Pending Studies/Follow-Up: Follow up with your PCP on 01/21/17 at 2:10pm Follow up with your PCP regarding arrangement colonoscopy as outpatient Needs Scalp suture removal as outpatient (Follow up with your PCP) Medication Reconciliation New Medications: Levofloxacin (Levofloxacin) 750 Mg Tab 750 MG PO Q2D@1100 for 4 Days, #4 TAB Continued Medications: Ascorbic Acid (Vitamin C Tr/Stephanie Hips) 500 Mg Tab 1000 MG PO QPM Aspirin (Aspirin Ec) 81 Mg Tab 81 MG PO DAILY Calcium Carbonate-Vitamin D W/ (Calcium 600 + Minerals) 1 Tab Tab 1 TAB PO BID Cholecalciferol (D3) 2,000 Unit Cap 1 TAB PO HS Glipizide (Glucotrol) 5 Mg Tab 5 MG PO BID, TAB Lisinopril (Prinivil) 5 Mg Tab 5 MG PO DAILY for 30 Days, TAB (This prescription has been renewed) Metoprolol Succ (Toprol Xl) (Toprol-Xl) 25 Mg Tabcr 25 MG PO DAILY, #30 TAB (This prescription has been renewed) Naproxen (Naprosyn) 500 Mg Tab 500 MG PO BID PRN for Pain, TAB Potassium (Potassium) 99 Mg Tab 2 TABS PO QPM Ranitidine (Zantac) 150 Mg Tab 150 MG PO BID, TAB Admission Information HPI (per Admitting provider): CHIEF COMPLAINT: Syncope. HISTORY OF PRESENT ILLNESS: Medical history is significant for breast cancer (atypical ductal hyperplasia) , R sp surgery ([facility], 2009) sp Tamoxifen tx. hypertension, DM2 on oral meds, past tobacco abuse, history of diverticulosis, hemorrhoids and polyps as per records, chronic anemia (baseline hemoglobin of 10). Recent confinement in 2013 for elective right knee surgery. Camilo Ppatient was walking in the hallway at the Emergency Room waiting room (px came w/ family to accompany a sick family member) when she felt lightheaded. Patient was found by staff to be unresponsive and face down on the floor. Px noted to diaphoretic. Px had subsequent emesis. bleeding wound noted on the R lutheran. Px denies blurred vision. No incontinence, tongue biting noted. Phe noted achy epigastric/lower chest discomfort, somewhat pleuritic ff fall, some relief with nitroglycerin at the ER. Denies shortness of breath. Admits to chronic diarrhea symptoms the last 6 months. Initially attributed by PCP to metformin/ Diarrhea sx still persistent despite Glipizide switch. Some degree of weight loss as per family from chronic diarrhea. PX also admits to bladder discomfort sx. No fever, no chills. Px w/dry cough symptoms, sore throat. At the Emergency Room, the patient received ceftriaxone for possible sepsis. MEDICAL HISTORY: As above. She had a colonoscopy in February 2014 for chronic diarrhea symptoms which showed non thrombosed external and internal hemorrhoids, moderate diverticulosis and polyps. The patient was told to increase fiber, Citrucel, FiberCon and Metamucil. Diarrhea resolved subsequently. Physical Exam (per Admitting): VITAL SIGNS: Blood pressure was noted to be 130/69 pulse rate 90 RR 18 T 36.4, sats 91 on room air and later 98 on 2 liters. GENERAL: Noted to be obese, slightly uncomfortable, in no respiratory distress. SKIN: pallor. HEENT: Pale palpebral conjunctivae. Dry mucosa. dressing R lat orbit NECK: Short neck. LUNGS: Decreased breath sounds. ABDOMEN: Epigastric tenderness EXTREMITIES: No edema, no tenderness. NEUROLOGIC: No gross focality. Hospital Course SEPSIS: secondary to UTI Also has history of chronic diarrhea since 6 months: r/o c.diff Cultures:Urine: E.coli Blood: No growth to date stool studies: C.diff negative On IV Cefepime >>>> Switch to PO Levaquin DC IV flagyl Lactate:wnl Leukocytosis resolved CXR/CT chest:No acute process CT abdomen:Chronic sigmoid diverticulosis with moderate wall thickening S/P IV fluids UNWITNESSED SYNCOPE: Likely from orthostasis secondary to dehydration/illness Patient reports feeling lightheaded prior to syncopal episode S/P IV fluids EEG:Normal, without evidence for focal or generalized encephalopathy and without evidence for potentially epileptogenic activity. ECHO: Left ventricular wall motion is normal; EF>70 CT head:wnl Monitor Tele: No arrhythmias Nondisplaced cortical fracture anterior right orbital margin Head injury with +LOC Secondary to fall from syncope S/P sutures CT head: Partial opacification right maxillary sinus. Brain specifically is negative Non operative management CHRONIC DIARRHEA: Unclear etiology Stool: C.diff negative Appreciate GI input CT abd: sigmoid diverticulosis with moderate wall thickening Needs colonoscopy as outpatient PLEURITIC RIGHT SIDED CHEST PAIN: Likely musculoskeletal secondary to fall Pain control PT/OT Troponin: Negative Heat/Cold therapy RUQ ABD USD:wnl KIMBERLEE: Likely prerenal Resolved S/P IV Fluids Monitor Will resume lisinopril today DM II ISS, Accu checks HTN: Elevated today Resume lisinopril, continue BB monitor H/O R breast cancer S/P surgery, tamoxifen therapy DVT PX: Heparin subQ. CODE STATUS: Full code. DISPOSITION: Patient may benefit from SNF Vs Rehab: She doesn't want any rehab/SNF/Home health placement: discussed on 01/17/17 Needs colonoscopy as outpatient Plan to discharge home today. Follow up with your PCP on 01/21/17 at 2:10pm PROCEDURES: ECHO: * The left ventricular cavity is small. * There is moderate concentric left ventricular hypertrophy. * Ejection Fraction = >70 %. * The left ventricular wall motion is normal. * The right ventricular systolic function is normal. * The left atrium is moderately dilated. * The right atrium is mild to moderately dilated. Total time spent on discharge = 35 minutes This includes examination of the patient, discharge planning, medication reconciliation, and communication with other providers. Discharge Instructions Discharge Instructions Admission Reason for Admission: Sepsis Discharge Discharge Diagnosis / Problem: Sepsis, UTI, Syncope Discharge Goals Goal(s): Decrease discomfort, Improve function Activity Recommendations Activity Limitations: resume your previous activity Exercise/Sports Limitations: as tolerated . Instructions / Follow-Up Instructions / Follow-Up Follow up with your PCP on 01/21/17 at 2:10pm Follow up with your PCP regarding arrangement colonoscopy as outpatient Needs Scalp suture removal as outpatient (Follow up with your PCP) Complete the antibiotic course as prescribed Seek immediate medical attention if your symptoms reoccur or worsen Please call your PCP for possible home physical therapy/Home health as needed if you change your mind Current Hospital Diet Patient's current hospital diet: Diabetes Type 2 Diet Discharge Diet Recommended Diet: Diabetes Type 2 Diet Pending Studies Studies pending at discharge: no Laboratory Results Hemoglobin A1c Test 01/13/17 21:03 Range/Units Estimated Average Glucose 117 mg/dl Hemoglobin A1c 5.7 H 4.5-5.6 % Medical Emergencies . Who to Call and When: Medical Emergencies: If at any time you feel your situation is an emergency, please call 911 immediately. . Non-Emergent Contact Non-Emergency issues call your: Primary Care Provider Call Non-Emergent contact if: you have a fever, your pain is not controlled, your pain is worsening, your pain is unusual for you, you have any medication questions . . "Provider Documentation" section prepared by Trevor Uriarte. VTE Core Measure Inpt VTE Proph given/why not?: Unfractionated heparin SQ
[2017-01-17 14:45] VITALS: BP 120/70; PULSE 62; TEMP 36.4; O2SAT 96
[2017-01-17 15:14] VITALS: BP 120/70; PULSE 62; TEMP 36.4; O2SAT 96
== END 2017-01-17 16:30 | disposition home or self-care (01) | DRG 872 ==
LOC: ENRESERVDT → ENRESERVTM → C.EDB 20:21 → C.EDINP 23:38 → C.2E 01-14 14:27 → C.MS2W 01-15 14:16 → C.MS4W 01-16 07:27
PROVIDERS: ADMIT Internal Medicine; ATTEND Internal Medicine
PROC: 0HQ1XZZ Repair Face Skin, External Approach (ICD-10-PCS; principal; 2017-01-14)
DX: A41.9 Sepsis, unspecified organism (principal); N39.0 Urinary tract infection, site not specified; N17.9 Acute kidney failure, unspecified; S02.81XA Fracture of other specified skull and facial bones, right side, initial encounter for closed fracture; B96.20 Unspecified Escherichia coli [E. coli] as the cause of diseases classified elsewhere; K52.9 Noninfective gastroenteritis and colitis, unspecified; R55 Syncope and collapse; I10 Essential (primary) hypertension; E11.9 Type 2 diabetes mellitus without complications; D64.9 Anemia, unspecified; R07.89 Other chest pain; S01.81XA Laceration without foreign body of other part of head, initial encounter; W19.XXXA Unspecified fall, initial encounter; Y92.238 Other place in hospital as the place of occurrence of the external cause; Y99.8 Other external cause status; Z85.3 Personal history of malignant neoplasm of breast; Z86.010 Personal history of colon polyps; Z87.19 Personal history of other diseases of the digestive system; Z87.891 Personal history of nicotine dependence; Z79.82 Long term (current) use of aspirin; Z79.84 Long term (current) use of oral hypoglycemic drugs; Z79.899 Other long term (current) drug therapy; Z80.3 Family history of malignant neoplasm of breast; Z82.49 Family history of ischemic heart disease and other diseases of the circulatory system; Z83.3 Family history of diabetes mellitus